=== PATIENT | male | born 1965 | race Caucasian/White ===

== ENCOUNTER → 2021-05-31 11:40 | Outpatient (CLI) | payer SELFPAY ==
--- NOTE | 2021-05-31 11:48 | DI.CT.S_ITS ---
PROCEDURE: CT SOFT TISSUE NECK W CON INDICATIONS: Esophageal obstruction/Lab TECHNIQUE: After the administration of intravenous contrast, 3.0 mm axial sections acquired from the sella to the aortic arch. Additional oblique axial 3.0 mm sections acquired through the pharynx. 3 mm thick coronal and sagittal reformats were generated. For radiation dose reduction, the following was used: automated exposure control. COMPARISON: None. FINDINGS: Image quality: Excellent. Lymph nodes: Multiple enlarged left level 2 neck lymph nodes are noted. Largest node measures 2.9 centimeters in short axis. The enlarged nodes have low-density centrally compatible with necrosis. Mild inflammatory stranding noted adjacent to the enlarged nodes. Vessels: Visualized vasculature appears patent. Neck spaces: The oropharynx, nasopharynx, and pharynx demonstrate no mucosal lesions. The vocal cords, false vocal cords, pyriform sinuses, epiglottis, vallecula, and tongue base all appear normal. Extramucosal spaces appear unremarkable. Glands: The parotid and submandibular glands appear normal. Thyroid gland is within normal limits Miscellaneous: Visualized brain and orbits appear normal. Lung apices appear clear. Superficial soft tissues appear normal. Bones: No suspicious bony lesions. Visualized sinuses and mastoids appear unremarkable. IMPRESSION: 1. Enlarged, necrotic left level 2 neck lymphadenopathy which could be neoplastic including lymphoma metastatic disease or infectious including tuberculosis. 2. Airway is patent. 3. No definite mass or stricture involving the esophagus, however CT imaging could Mrs. Stoppage of pathology. Recommend either endoscopy or barium contrasted esophagram for further evaluation if clinically indicated. Dictated by: Lucia Serrano MD, PhD on 05/31/2021 at 12:16 Approved by: Lucia Serrano MD, PhD on 05/31/2021 at 12:47
[2021-05-31 12:12] LABS: Add Manual Diff / Slide Review NO; Basophils Absolute Auto 0 /uL (0-100); Basophils Percent Auto 0.5 % (0-2); Eosinophils Absolute Auto 100 /uL (0-450); Eosinophils Percent Auto 2.5 % (2-4); Hematocrit 30.7 % (41-53); Hemoglobin 9.8 g/dL (13.5-17.5); Lymphocytes Absolute Auto 1600 /uL (1100-4500); Lymphocytes Percent Auto 31.6 % (25-40); Mean Corpuscular Hemoglobin 25.6 PG (26-34); Mean Corpuscular Volume 79.9 fL (80-100); Monocytes Absolute Auto 600 /uL (0-900); Monocytes Percent Auto 12.2 % (3-14); Neutrophils Absolute Auto 2600 /uL (1500-7000); Neutrophils Percent Auto 53.2 % (50-75); Platelet Count 365 X10^3/uL (150-400); Red Blood Cell Count 3.84 X10^6/uL (4.5-5.9); Red Cell Distribution Width 17.3 % (11.6-14.8); White Blood Cell Count 4.9 X10^3/uL (4.5-11.0)
[2021-05-31 12:22] LABS: Estimated Glomerular Filt Rate > 60.0 mL/min (>60)
== END ==
PROVIDERS: PCP Family Medicine; Referring Provider Dentist Oral and Maxillofacial Surgery; Visit Provider Dentist Oral and Maxillofacial Surgery
DX: K22.2 Esophageal obstruction (principal); K11.20 Sialoadenitis, unspecified; R59.0 Localized enlarged lymph nodes
CPT/HCPCS: 36415; 70491; 82565; 85025